=== PATIENT | female | born 2000 | race Two or more races ===

== ENCOUNTER 2020-09-26 20:09 | Emergency (ER) | payer SELFPAY ==
[~2020-09-26] VITALS: Ht 149.9 cm; Wt 56.0 kg
--- NOTE | 2020-09-26 22:29 | PHYS DOC ---
Past Medical History Past Medical History: Constipation Past Surgical History: Cholecystectomy Smoking Status: Current Some Day Smoker Alcohol Use: None General Adult EDM: Chief Complaint: CONTISPATION HPI: HPI: Patient is a 20-year-old female who presents for constipation. Onset was approximately 1 month ago. States she became homeless around that time and ever since, reports poor diet and poor p.o. fluid intake as she has only been ingesting " what ever I could get my hands on". States she found sample packets of MiraLAX and has used these intermittently without significant relief. Reports she has infrequent bowel movements throughout the week that are often hard and look like rabbit pellets. Abdominal pain waxes and wanes. No prior history of abdominal surgery or trauma. She is still passing gas with last bowel movement yesterday with mild improvement in symptoms Review of Systems: Review of Systems: Fourteen body systems of review of systems have been reviewed. See HPI for pertinent positives and negative responses, other loredo all other systems are negative, non-pertinent or non-contributory Heart Score: C/O Chest Pain: No Risk Factors: Risk Factors: DM, Current or recent (<one month) smoker, HTN, HLP, family history of CAD, obesity. Risk Scores: Score 0 - 3: 2.5% MACE over next 6 weeks - Discharge Home Score 4 - 6: 20.3% MACE over next 6 weeks - Admit for Clinical Observation Score 7 - 10: 72.7% MACE over next 6 weeks - Early Invasive Strategies Allergies: Allergies: Allergies Coded Allergies Type Severity Reaction Last Updated Verified shrimp Allergy Severe 09/26/20 Yes Physical Exam: PE: Constitutional: Well developed, well nourished, no acute distress, non-toxic appearance. HENT: Normocephalic, atraumatic, bilateral external ears normal, oropharynx moist, no oral exudates, nose normal. Eyes: PERRLA, EOMI, conjunctiva normal, no discharge. Neck: Normal range of motion, no tenderness, supple, no stridor. Cardiovascular: Heart rate regular, sinus rhythm, no murmurs rubs or gallops Lungs & Thorax: Bilateral breath sounds clear to auscultation Abdomen: Bowel sounds hypoactive globally, soft, no tenderness, no masses, no pulsatile masses. Nonsurgical abdomen, no peritoneal signs Skin: Warm, dry, no erythema, no rash. Back: No tenderness, no CVA tenderness. Extremities: No tenderness, no cyanosis, no clubbing, ROM intact, no edema. Neurologic: Alert and oriented X 3, grossly normal motor & sensory function, no focal deficits noted. Psychologic: Affect normal, judgement normal, mood normal. Current Patient Data: Labs: Laboratory Tests Test 09/26/20 20:19 POC Urine HCG, Qualitative Hcg negative (Negative) Vital Signs: Vital Signs Date Time Temp Pulse Resp B/P (MAP) Pulse Ox O2 Delivery O2 Flow Rate FiO2 09/26/20 21:59 98.7 73 12 150/80 (103) 96 Room Air 98.7 EKG: EKG: [] Radiology/Procedures: Radiology/Procedures: XR ABDOMEN 1V Clinical Indication: Reason: CONSTIPATION / Spl. Instructions: / History: Comparison: None. Findings: There is scattered stool in the ascending and transverse colon. There is mild air in the distal colon. There is no dilated small bowel. Air is seen in the st omach. Cholecystectomy clips. No obvious organomegaly. Upper abdomen is incompletely imaged. Bones unremarkable. IMPRESSION: Nonobstructive bowel gas pattern. Electronically signed by: Ryder Woodard MD (09/26/2020 11:13 PM) [facility] Course & Med Decision Making: Course & Med Decision Making Discussed with the patient all findings and diagnostic testing. I discussed most likely diagnosis of constipation with low risk of small bowel obstruction. I offered digital rectal exam to check for impaction but patient deferred this. IV fluid rehydration administered, discussed importance of continued supportive care and advised alternative practices such as ingesting [id number] fiber supplement such as Metamucil etc. I stressed need for close outpatient follow-up to review today's ER visit. Strict return precautions were also discussed at [facility] with good understanding by patient. Patient voiced understanding and agreement with the plan. Patient knows to come back for repeat evaluation if concerning signs or symptoms present prior to outpatient follow-up. Hemodynamically stable, ambulatory and well-appearing at time of disposition. Dragon Disclaimer: Marguerite Disclaimer: This electronic medical record was generated, in whole or in part, using a voice recognition dictation system. Departure Departure Impression: Primary Impression: Constipation Additional Impression: Hyperglycemia Disposition: HOME / SELF CARE / HOMELESS Condition: IMPROVED Referrals: NO PCP (PCP) Patient Instructions: Constipation, Adult Additional Instructions: You were seen for constipation. Make sure to drink plenty of fluids and eat l ots of fruits and vegetables. Please aim to ingest at least 10 g of fiber daily. You should use Metamucil and Colace daily to help your bowel movements become more regular. You need to establish with a primary care physician for continuity of care. You will need to follow-up on the high blood sugar levels that were disclosed to you today as this is concerning for potential pred iabetes/diabetes. Return to the ED if you develop abdominal pain, fever, black/bloody stools, vomiting, or any other new or concerning symptoms. Scripts Docusate Sodium (COLACE) 100 Mg Capsule 1 CAP PO BID for 15 Days, #30 CAP 0 Refills Prov: LINDSAY DANIELS DO 09/27/20 Psyllium Husk (METAMUCIL) 0.52 Gm Capsule 1 CAP PO DAILY for 30 Days, #30 CAP 0 Refills Prov: LINDSAY DANIELS DO 09/27/20 LINDSAY DANIELS DO September 26, 2020 22:29
[2020-09-26] MEDS ORDERED: DOCUSATE SODIUM 100 MG CAPSULE. PO PRN (22:30)
[2020-09-26] MEDS ORDERED: IV NORMAL SALINE 1000ML BAG 1,000 ML IV ONE (23:00)
--- NOTE | 2020-09-26 23:16 | RAD ---
XR ABDOMEN 1V Clinical Indication: Reason: CONSTIPATION / Spl. Instructions: / History: Comparison: None. Findings: There is scattered stool in the ascending and transverse colon. There is mild air in the distal colon . There is no dilated small bowel. Air is seen in the stomach. Cholecystectomy clips. No obvious orga nomegaly. Upper abdomen is incompletely imaged. Bones unremarkable. IMPRESSION: Nonobstructive bowel gas pattern. Electronically signed by: Ryder Woodard MD (09/26/2020 11:13 PM) [facility]
[2020-09-26 23:30] VITALS: BP 153/95
[2020-09-26 23:38] LABS: CALCIUM 8.7 mg/dL (8.5-10.1); CREATININE 0.6 mg/dL (0.6-1.0); GFR 127.5; POTASSIUM 3.9 mmol/L (3.5-5.1)
[2020-09-26 23:43] LABS: ALBUMIN 3.8 g/dL (3.4-5.0); ALBUMIN/GLOBULIN RATIO 1.2 (1.0-1.7); TOTAL BILIRUBIN 0.2 mg/dL (0.2-1.0); TOTAL PROTEIN 6.9 g/dL (6.4-8.2)
[2020-09-26] MEDS ORDERED: ACETAMINOPHEN 500 MG TABLET PO ONE (23:45)
[2020-09-26] MEDS ORDERED: DICYCLOMINE HCL 10 MG CAPSULE PO ONE (23:45)
[2020-09-27] MEDS ORDERED: DOCU-109 PO (00:38)
[2020-09-27] MEDS ORDERED: PSYL0.5215 PO (00:38)
== END 2020-09-27 00:25 | disposition home or self-care (01) ==
LOC: ER 20:09
DX: K59.00 Constipation, unspecified (principal); Z59.0 Homelessness; F17.200 Nicotine dependence, unspecified, uncomplicated; Z91.013 Allergy to seafood
CPT/HCPCS: 36415; 74018; 80053; 81025; 84443; 96360; 99284; J7030